=== PATIENT | male | born 1985 | race Two or more races ===

== ENCOUNTER 2024-05-16 10:12 | Emergency (ER) | payer MEDICAID, SELFPAY ==
[2024-05-16 10:18] VITALS: BP 164/96; PULSE 108; RESP 20; TEMP 36.9; O2SAT 95; BMI 29.6
--- NOTE | 2024-05-16 10:42 | PD.EDRME ---
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
--- NOTE | 2024-05-16 10:54 | PC.NURSE ---
Pt stated that he did not want to stay for tests in hospital since hes not able to see his liver on a screen. Pt states hes hearing voices and the voices are messing with his liver . Encouraged pt to come back to ER for any worsening symptoms.
== END 2024-05-16 16:29 | disposition left against medical advice (07) ==
PROVIDERS: Emergency Provider Emergency Medicine
DX: R10.10 Upper abdominal pain, unspecified (principal); Z53.29 Procedure and treatment not carried out because of patient's decision for other reasons
CPT/HCPCS: 99281